=== PATIENT | female | born 1975 | race Caucasian/White ===

== ENCOUNTER 2016-12-24 16:35 | Emergency (ER) | payer OTHER ==
[2016-12-24 16:35] VITALS: BMI 37.8
--- NOTE | 2016-12-24 16:59 | C.PDOC ---
History Of Present Illness Patient is a 41 y/o female presents to the emergency department for evaluation of lower back pain radiating to the abdomen for the last 2 days. Patient states pain was worse today which prompted ER visit. Notes pain is worse on the right side and does not radiate down the leg. Patient states she noticed her urine was dark, had foul smell yesterday and burned during urination. Today she denies any dysuria and complains of low back pain worse on the right side 8/10 pain. Denies any hematuria, urinary frequency, vomiting, diarrhea, constipation , fever, or any other associated symptoms at this time. Denies taking any OTC pain meds. Time Seen by Provider: 12/24/16 16:56 Chief Complaint (Nursing): Back Pain History Per: Patient History/Exam Limitations: no limitations Onset/Duration Of Symptoms: Days (2) Current Symptoms Are (Timing): Still Present Quality Of Discomfort: "Pain" Severity: Moderate Pain Scale Rating Of: 8 Previous Symptoms: Back Pain Associated Symptoms: None. denies: Incontinence, New Weakness, New Numbness Exacerbating Factor(s): Nothing Recent travel outside of the [place]: No Additional History Per: Patient Past Medical History Reviewed: Historical Data, Nursing Documentation, Vital Signs Vital Signs: Last Vital Signs Temp 98.5 F 12/24/16 16:44 Pulse 61 12/24/16 16:44 Resp 20 12/24/16 16:44 BP 134/91 H 12/24/16 16:44 Pulse Ox 99 12/24/16 17:51 - Medical History PMH: Asthma - [facility] Procedures APPLICATION OF SPLINT (07/12/14) ASPIRAT CURET-POST DELIV (11/26/12) Family History: States: Unknown Family Hx - Social History Hx Tobacco Use: No Hx Alcohol Use: Yes Hx Substance Use: No - Immunization History Hx Tetanus Toxoid Vaccination: Yes Hx Influenza Vaccination: Yes Hx Pneumococcal Vaccination: Yes Review Of Systems Except As Marked, All Systems Reviewed And Found Negative. Constitutional: Negative for: Fever, Chills Gastrointestinal: Positive for: Abdominal Pain. Negative for: Vomiting, Diarrhea, Constipation Genitourinary: Positive for: Dysuria. Negative for: Frequency, Incontinence, Hematuria Musculoskeletal: Positive for: Back Pain. Negative for: Neck Pain Skin: Negative for: Rash Neurological: Negative for: Weakness, Numbness Physical Exam - Physical Exam Appears: Non-toxic, No Acute Distress Skin: Warm, Dry, No Diaphoretic, No Pale, No Rash Head: Atraumatic, Normacephalic Eye(s): bilateral: Normal Inspection Neck: Normal ROM, Supple Chest: Symmetrical Cardiovascular: Rhythm Regular, No Murmur Respiratory: Normal Breath Sounds, No Rales, No Rhonchi, No Wheezing Gastrointestinal/Abdominal: Bowel Sounds (Normal active), Soft (Obese), No Tenderness, No Mass, No Distention, No Guarding, No Rebound Back: Normal Inspection (no swelling, no erythema, no rash, no ecchymosis), No CVA Tenderness, No Vertebral Tenderness, No Decreased ROM, No Muscle Spasm, Paraspinal Tenderness (lumbar region tender, greater on the right side), No Straight Leg Raising Extremity: Bilateral: Atraumatic, Normal Color And Temperature, Normal ROM Neurological/Psych: Oriented x3, Normal Speech Gait: Steady ED Course And Treatment O2 Sat by Pulse Oximetry: 99 (on RA) Pulse Ox Interpretation: Normal Medical Decision Making Medical Decision Makin41 year old female with low back pain and reports dysuria yesterday. Back exam reveals muscular tenderness to lumbosacral region. Abdomen soft and nontender. Patient last menses was 11/24, will order Urinalysis and test. Treat with Tylenol. UA reviewed and negative for , UTI or blood to suggest calculus. Will order Toradol, Lidoderm and Valium. On reassessment, patient is resting comfortably, no acute distress. Patient reports feeling better, the back pain is improving. Patient ambulatory without signs of discomfort. Patient stable for discharge. Disposition Counseled Patient/Family Regarding: Diagnosis, Need For Followup, Rx Given - Disposition Referrals: [facility] [Outside] [facility] [Outside] Disposition: HOME/ ROUTINE Disposition Time: 18:24 Condition: STABLE Additional Instructions: Vaya a viveros mdico o la clnica en 2-5 bailey sin falta, para mas evaluacin. Kimberly los medicamentos gertrude indicado. Volver a la rajan de emergencia en cualquier momento si los sntomas persisten o empeoran. Prescriptions: Cyclobenzaprine [Cyclobenzaprine HCl] 10 mg PO TID #21 tab Ibuprofen [Motrin] 600 mg PO Q8 #30 tab Instructions: Acute Low Back Pain (DC) Print Language: POLISH - POA Present On Arrival: None - Clinical Impression Clinical Impression: Low back pain - PA / [employer] / Resident Statement MD/DO has reviewed & agrees with the documentation as recorded. - Scribe Statement The provider has reviewed the documentation as recorded by the Isaiibe Cresencio Briones All medical record entries made by the Isaiibjoão were at my direction and personally dictated by me. I have reviewed the chart and agree that the record accurately reflects my personal performance of the history, physical exam, medical decision making, and the department course for this patient. I have also personally directed, reviewed, and agree with the discharge instructions and disposition.
[2016-12-24 17:27] LABS: HCG,QUALITATIVE URINE NEGATIVE (NEGATIVE)
[2016-12-24 17:28] LABS: SQUAMOUS EPITHIAL < 1 /hpf (0-5); URINE BILIRUBIN NEGATIVE (NEGATIVE); URINE BLOOD NEGATIVE (NEGATIVE); URINE CLARITY Clear (Clear); URINE COLOR Straw (YELLOW); URINE GLUCOSE (UA) NORMAL (Normal); URINE LEUKOCYTE ESTERASE NEG Leu/uL (Negative); URINE NITRATE NEGATIVE (NEGATIVE); URINE PROTEIN NEGATIVE (NEGATIVE); URINE UROBILINOGEN NORMAL mg/dL (0.2-1.0)
[2016-12-24 17:31] LABS: URINE BACTERIA RARE (<OCC)
[2016-12-24] MEDS ORDERED: Lidocaine 5% Patch TD STA (17:44)
[2016-12-24] MEDS ORDERED: Lidocaine 5% Patch TD ONE (17:54)
[2016-12-24 18:34] VITALS: BP 110/72; PULSE 63; RESP 16; TEMP 98; O2SAT 98
== END 2016-12-24 18:25 | disposition home or self-care (01) ==
LOC: C.ER 16:35
DX: M54.5 Low back pain (principal)
CPT/HCPCS: 81001; 84703; 87086; 96372; 99285; J1885